=== PATIENT | male | born 1955 | race Caucasian/White ===

== ENCOUNTER 2023-09-19 16:28 | Emergency (ER) | payer MEDICARE, SELFPAY ==
[2023-09-19 16:49] VITALS: BP 130/72; PULSE 90; RESP 20; TEMP 36.8; O2SAT 98
--- NOTE | 2023-09-19 17:07 | ED.URI ---
HPI - URI/Sore Throat General Chief Complaint: Upper Respiratory Infection Stated Complaint: cough settled in chest Time Seen by Provider: 09/19/23 17:39 Source: patient and RN notes reviewed Mode of arrival: ambulatory Limitations: no limitations History of Present Illness HPI Narrative: 67-year-old male with history of asthma and CHF presents with concern for cough that feels like it settled in his chest. He reports symptoms started about 5 days ago. Reports he has used his albuterol inhaler and nebulizer and has been using Robitussin and Mucinex without relief. MD elicited complaint: cough Related Data Home Medications Medication Instructions Recorded Confirmed albuterol sulfate 90 mcg/actuation 2 puff inhalation Q4H PRN sob 09/19/23 09/19/23 aerosol inhaler cyclobenzaprine 10 mg tablet 10 mg PO BID PRN pain 09/19/23 09/19/23 digoxin 125 mcg (0.125 mg) tablet 125 mcg PO DAILY 09/19/23 09/19/23 fluticasone 250 mcg-salmeterol 50 inh inhalation BID 09/19/23 mcg/dose blistr powdr for inhalation (Advair Diskus) furosemide 20 mg tablet 20 mg PO DAILY 09/19/23 09/19/23 glimepiride 2 mg tablet 2 mg PO DAILY 09/19/23 09/19/23 hydrocodone 10 mg-acetaminophen 1 tablet PO Q6H PRN pain 09/19/23 09/19/23 325 mg tablet losartan 100 mg tablet 100 mg PO DAILY 09/19/23 09/19/23 metformin 1,000 mg tablet 1,000 mg PO BID 09/19/23 09/19/23 tamsulosin 0.4 mg capsule 0.4 mg PO DAILY 09/19/23 09/19/23 Allergies Allergy/AdvReac Type Severity Reaction Status Date / Time lisinopril Allergy Intermediate CHF Verified 09/19/23 16:59 Review of Systems Review of Systems: CONSTITUTIONAL: Denies malaise, chills, sweats, or fever. EYES: Denies visual changes, redness, or discharge. ENT: Reports rhinorrhea, congestion. Denies sinus pain, otalgia and sore throat. CARDIOVASCULAR: Denies chest pain, palpitations, or edema. RESPIRATORY: Reports cough, chest congestion, dyspnea. GASTROINTESTINAL: Denies abdominal pain, nausea, vomiting, diarrhea SKIN: Denies rash or itching. MUSCULOSKELETAL: Denies myalgia. NEUROLOGIC: Denies headache. All systems reviewed & are unremarkable except as noted in HPI and below PMFSH Comments At time of signature, agree with nursing past medical, surgical, social and family history. There is no relevant family history pertinent to the presenting complaint Exam Narrative: GENERAL: Well-appearing, well-nourished, and in no acute distress. HEAD: Normocephalic EYES: PERRLA, conjunctivae clear ENT: Nares clear. Mucous membranes moist. TM pearly james with sharp light reflex bilaterally; no tragal tenderness. Oropharynx not erythematous without lesions. Tonsils not enlarged and without exudate, no drooling, no hoarseness, no trismus, uvula midline. NECK: Supple. No lymphadenopathy CHEST: Scattered expiratory wheeze, breath sounds equal. No rhonchi, rales, or stridor. No respiratory distress, speaks in full sentences. HEART: Regular rate and rhythm. No murmur heard. SKIN: Warm, dry, no rash. NEURO: Alert and oriented x3. PSYCH: Normal mood and affect Course Course Emergency Course: Patient is aware of diagnosis, understands and agrees to treatment plan. Anticipatory guidance given. Patient agrees to follow-up as directed and is aware of reasons to seek care at the emergency department. Portions of this record may have been created with voice recognition software Level of Care: Express Care Visit Vital Signs Vital signs: Vital Signs Temperature 98.2 F 09/19/23 16:49 Pulse Rate 90 09/19/23 16:49 Respiratory Rate 20 09/19/23 16:49 Blood Pressure 130/72 09/19/23 16:49 Pulse Oximetry 98 09/19/23 16:49 Oxygen Delivery Room Air 09/19/23 16:49 Temperature 98.2 F 09/19/23 16:49 Pulse Rate 90 09/19/23 16:49 Respiratory Rate 20 09/19/23 16:49 Blood Pressure 130/72 09/19/23 16:49 Pulse Oximetry 98 09/19/23 16:49 Oxygen Delivery Room Air 09/19/23 16:49 Revie
== END 2023-09-19 17:45 | disposition home or self-care (01) ==
PROVIDERS: Emergency Provider Nurse Practitioner; PCP Internal Medicine
DX: J06.9 Acute upper respiratory infection, unspecified (principal); J45.909 Unspecified asthma, uncomplicated; I50.9 Heart failure, unspecified; E78.00 Pure hypercholesterolemia, unspecified; E11.9 Type 2 diabetes mellitus without complications; Z95.810 Presence of automatic (implantable) cardiac defibrillator
CPT/HCPCS: 99203; G0463

== ENCOUNTER 2023-10-29 17:35 | Emergency (ER) | payer MEDICARE, SELFPAY ==
--- NOTE | ~2023-10-29 | XR_ITS ---
EXAMINATION: XR chest 2V DATE: 10/29/2023 18:17 INDICATION: Shortness of breath. Cough. TECHNIQUE: Frontal and lateral views of the chest were obtained. COMPARISON: None. FINDINGS: There is no pneumonia, pleural effusion, or pneumothorax. The heart size is normal. There i s a left chest pacer/defibrillator with lead in right ventricle. IMPRESSION: 1. No acute cardiopulmonary disease. Reviewed, dictated and finalized at location E. [employer]
[2023-10-29 17:43] VITALS: BP 85/52; PULSE 100; RESP 20; TEMP 36.6; O2SAT 99
[2023-10-29 17:58] VITALS: BP 88/59
--- NOTE | 2023-10-29 18:45 | ED.URI ---
HPI - URI/Sore Throat General Chief Complaint: Upper Respiratory Infection Stated Complaint: Cough Time Seen by Provider: 10/29/23 18:30 Source: patient, RN notes reviewed and old records reviewed Mode of arrival: ambulatory Limitations: no limitations History of Present Illness HPI Narrative: 67-year-old male presents to [facility] with complaints of having cough for the past 2 weeks which has persisted. Patient reports that he initially had some fevers but they have resolved. Patient reports that he has been taking Mucinex and has also been using his inhaler and nebulizer. Patient has history of asthma MD elicited complaint: cough Pertinent past history: asthma Onset (ago): week(s) (2) Consistency: constant Severity: moderate Able to tolerate fluids by mouth: Yes Treatments prior to arrival: other (Mucinex and inhaler) Related Data Home Medications Medication Instructions Recorded Confirmed albuterol sulfate 90 mcg/actuation 2 puff inhalation Q4H PRN sob 09/19/23 10/29/23 aerosol inhaler cyclobenzaprine 10 mg tablet 10 mg PO BID PRN pain 09/19/23 10/29/23 digoxin 125 mcg (0.125 mg) tablet 125 mcg PO DAILY 09/19/23 10/29/23 fluticasone 250 mcg-salmeterol 50 2 inh inhalation BID 09/19/23 10/29/23 mcg/dose blistr powdr for inhalation (Advair Diskus) furosemide 20 mg tablet 20 mg PO DAILY 09/19/23 10/29/23 glimepiride 2 mg tablet 2 mg PO DAILY 09/19/23 10/29/23 hydrocodone 10 mg-acetaminophen 1 tablet PO Q6H PRN pain 09/19/23 10/29/23 325 mg tablet losartan 100 mg tablet 100 mg PO DAILY 09/19/23 10/29/23 metformin 1,000 mg tablet 1,000 mg PO BID 09/19/23 10/29/23 tamsulosin 0.4 mg capsule 0.4 mg PO DAILY 09/19/23 10/29/23 carvedilol 6.25 mg tablet 19.25 mg PO BID 10/29/23 10/29/23 spironolactone 25 mg tablet 12.5 mg PO DAILY 10/29/23 10/29/23 Allergies Allergy/AdvReac Type Severity Reaction Status Date / Time lisinopril Allergy Intermediate CHF Verified 10/29/23 18:51 Review of Systems Review of Systems: CONSTITUTIONAL: Denies malaise, chills, sweats, or recent fever. EYES: Denies visual changes, redness, or discharge. ENT: Reports rhinorrhea, congestion, no sinus pain, no otalgia and no sore throat. CARDIOVASCULAR: Denies chest pain, palpitations, or edema. RESPIRATORY: Reports cough.? Denies acute dyspnea. GASTROINTESTINAL: Denies abdominal pain, nausea, vomiting, diarrhea SKIN: Denies rash or itching. MUSCULOSKELETAL: Denies myalgia. NEUROLOGIC: Denies headache. All systems reviewed & are unremarkable except as noted in HPI and below PMFSH Past Medical History Medical History (Updated 10/31/23 @ 22:08 by Alessandra Amezquita NP) Asthma CHF (congestive heart failure), NYHA class II Diabetes Elevated cholesterol Fracture of left upper limb GERD (gastroesophageal reflux disease) Hypertension Presence of combination internal cardiac defibrillator (ICD) and pacemaker Surgical History Surgical History (Updated 10/31/23 @ 22:04 by Alessandra Amezquita NP) History of bilateral carpal tunnel release Hx of appendectomy Social History Social History (Updated 10/31/23 @ 22:02 by Alessandra Amezquita NP) Years smoked: 15 Smoking status: Former smoker Additional smoking assessment comments: Quit 2002 Alcohol intake: current Alcohol use details: rare Substance use type: does not use Living arrangements: with family Gender identity (if verbalized by the patient): Male Comments At time of signature, agree with nursing past medical, surgical, social and family history. There is no relevant family history pertinent to the presenting complaint Exam Narrative: GENERAL: Well-appearing, well-nourished, and in no acute distress. HEAD: Normocephalic EYES: PERRLA, conjunctivae clear ENT: Nares clear, turbinates edematous and erythematous, clear discharge. Mucous membranes moist. TM pearly james with dull light reflex bilaterally; no tragal tenderness. Oropharynx erythema
[2023-10-29 19:05] VITALS: BP 99/66
== END 2023-10-29 19:05 | disposition home or self-care (01) ==
PROVIDERS: Emergency Provider Registered Nurse; PCP Internal Medicine
DX: J40 Bronchitis, not specified as acute or chronic (principal); Z20.822 Contact with and (suspected) exposure to COVID-19; I11.0 Hypertensive heart disease with heart failure; I50.9 Heart failure, unspecified; Z87.891 Personal history of nicotine dependence; J45.909 Unspecified asthma, uncomplicated; E11.9 Type 2 diabetes mellitus without complications; E78.00 Pure hypercholesterolemia, unspecified; K21.9 Gastro-esophageal reflux disease without esophagitis
CPT/HCPCS: 71046; 87426; 87804; 99213; G0463

== ENCOUNTER 2024-01-01 14:50 | Emergency (ER) | payer MEDICARE, SELFPAY ==
--- NOTE | ~2024-01-01 | XR_ITS ---
EXAMINATION: XR chest 2V 01/01/2024 15:22 INDICATION: Cough and shortness of breath PROCEDURE: 2 view chest COMPARISON: 10/29/2023 FINDINGS: The lungs are clear. The cardiomediastinal silhouette is within normal limits. There are no pleural effusions. There is no pneumothorax suspected. There are prominent bilateral nipple shad ows. Pacemaker lead in the right ventricle. IMPRESSION: 1: NO ACUTE CARDIOPULMONARY DISEASE. Reviewed, dictated and finalized at location A.
[2024-01-01 14:56] VITALS: BP 112/59; PULSE 61; RESP 20; TEMP 36.7; O2SAT 96
--- NOTE | 2024-01-01 15:13 | ED.GENADULT ---
HPI - General Adult General Chief complaint: Upper Respiratory Infection Stated complaint: cough / congestion in chest Source: patient, RN notes reviewed and old records reviewed Mode of arrival: ambulatory Limitations: no limitations History of Present Illness HPI narrative: 68-year-old male patient presents to [facility] with complaints clear productive cough, wheezing, shortness of breath this started approximately 5 days ago. Patient states worsened 3 days ago when shortness of breath and pain with coughing began. Patient states using inhaler and nebulizer with no relief. Related Data Home Medications Medication Instructions Recorded Confirmed albuterol sulfate 90 mcg/actuation 2 puff inhalation Q4H PRN sob 09/19/23 01/01/24 aerosol inhaler cyclobenzaprine 10 mg tablet 10 mg PO BID PRN pain 09/19/23 01/01/24 digoxin 125 mcg (0.125 mg) tablet 125 mcg PO DAILY 09/19/23 01/01/24 fluticasone 250 mcg-salmeterol 50 2 inh inhalation BID 09/19/23 01/01/24 mcg/dose blistr powdr for inhalation (Advair Diskus) furosemide 20 mg tablet 20 mg PO DAILY 09/19/23 01/01/24 glimepiride 2 mg tablet 2 mg PO DAILY 09/19/23 01/01/24 hydrocodone 10 mg-acetaminophen 1 tablet PO Q6H PRN pain 09/19/23 01/01/24 325 mg tablet losartan 100 mg tablet 100 mg PO DAILY 09/19/23 01/01/24 metformin 1,000 mg tablet 1,000 mg PO BID 09/19/23 01/01/24 tamsulosin 0.4 mg capsule 0.4 mg PO DAILY 09/19/23 01/01/24 carvedilol 6.25 mg tablet 19.25 mg PO BID 10/29/23 01/01/24 spironolactone 25 mg tablet 12.5 mg PO DAILY 10/29/23 01/01/24 Allergies Allergy/AdvReac Type Severity Reaction Status Date / Time lisinopril Allergy Intermediate CHF Verified 01/01/24 15:03 Review of Systems Constitutional: Constitutional: Reports no additional constitutional complaints, Denies body ache(s), Denies chills, Denies fatigue, Denies fever(s) and Denies headache(s) Eyes: Eyes: Reports no additional eye complaints and Denies blurry vision ENT: Reports system reviewed and no additional complaints, except as documented, Denies vertigo, Denies dizziness, Denies ear discharge, Denies otalgia, Denies facial pain, Denies headache(s), Denies nasal congestion, Denies nasal discharge, Denies sinus pain, Denies sinus pressure and Denies sore throat Cardiovascular: Cardiovascular: Reports no additional cardiovascular complaints, Denies chest pain, Denies chest pain at rest, Denies rapid heart rate and Reports dyspnea Respiratory: Respiratory: Reports no additional respiratory complaints, Reports chest congestion, Denies cough, Reports pain on inspiration, Reports pain with cough, Reports dyspnea and Reports wheezing Gastrointestinal: Gastrointestinal: Denies abdominal pain, Denies diarrhea, Denies nausea and Denies vomiting Integumentary/Breasts: Skin/Breast: Denies rash Neurologic: Reports system reviewed and no additional complaints, except as documented, Denies vertigo, Denies dizziness and Denies headache(s) Endocrine: Endocrine: Denies fatigue PMFSH Past Medical History Medical History Asthma CHF (congestive heart failure), NYHA class II Diabetes Elevated cholesterol Fracture of left upper limb GERD (gastroesophageal reflux disease) Hypertension Presence of combination internal cardiac defibrillator (ICD) and pacemaker Surgical History Surgical History History of bilateral carpal tunnel release Hx of appendectomy Social History Social History Years smoked: 15 Smoking status: Former smoker Additional smoking assessment comments: Quit 2002 Alcohol intake: current Alcohol use details: rare Substance use type: does not use Living arrangements: with family Gender identity (if verbalized by the patient): Male Comments At the time of my signature, I reviewed and agree with the nurs
== END 2024-01-01 15:30 | disposition home or self-care (01) ==
PROVIDERS: Emergency Provider Registered Nurse; PCP Internal Medicine
DX: J45.20 Mild intermittent asthma, uncomplicated (principal); Z87.891 Personal history of nicotine dependence; I11.0 Hypertensive heart disease with heart failure; I50.9 Heart failure, unspecified; E11.9 Type 2 diabetes mellitus without complications; Z79.84 Long term (current) use of oral hypoglycemic drugs; E78.00 Pure hypercholesterolemia, unspecified; K21.9 Gastro-esophageal reflux disease without esophagitis; Z95.810 Presence of automatic (implantable) cardiac defibrillator
CPT/HCPCS: 71046; 99213; G0463

== ENCOUNTER 2024-01-07 10:12 | Emergency (ER) | payer MEDICARE, SELFPAY ==
[2024-01-07 10:18] VITALS: BP 111/78; PULSE 118; RESP 16; TEMP 37.2; O2SAT 99
--- NOTE | 2024-01-07 10:29 | ED.URI ---
HPI - URI/Sore Throat General Chief Complaint: Upper Respiratory Infection Stated Complaint: Cough Time Seen by Provider: 01/07/24 10:31 Source: patient and RN notes reviewed Mode of arrival: ambulatory Limitations: no limitations History of Present Illness HPI Narrative: 68-year-old male with history of asthma presents with concern for ongoing cough. He was treated on December 31 for cough, wheezing, shortness of breath that he had had for 5 days at that time. He reports he took a steroid but he still coughing. He reports some improvement in the cough but no resolution. Reports he still using his albuterol inhaler or nebulizer 5-6 times daily. He denies any new fever, body aches, chills, sweats. Reports his cough is productive MD elicited complaint: cough Related Data Home Medications Medication Instructions Recorded Confirmed albuterol sulfate 90 mcg/actuation 2 puff inhalation Q4H PRN 09/19/23 01/07/24 aerosol inhaler Shortness Of Breath Or Wheezing cyclobenzaprine 10 mg tablet 10 mg PO BID PRN pain 09/19/23 01/07/24 digoxin 125 mcg (0.125 mg) tablet 125 mcg PO DAILY 09/19/23 01/07/24 fluticasone 250 mcg-salmeterol 50 2 inh inhalation BID 09/19/23 01/07/24 mcg/dose blistr powdr for inhalation (Advair Diskus) furosemide 20 mg tablet 20 mg PO DAILY 09/19/23 01/07/24 glimepiride 2 mg tablet 2 mg PO DAILY 09/19/23 01/07/24 hydrocodone 10 mg-acetaminophen 1 tablet PO Q6H PRN pain 09/19/23 01/07/24 325 mg tablet losartan 100 mg tablet 100 mg PO DAILY 09/19/23 01/07/24 metformin 1,000 mg tablet 1,000 mg PO BID 09/19/23 01/07/24 tamsulosin 0.4 mg capsule 0.4 mg PO DAILY 09/19/23 01/07/24 carvedilol 6.25 mg tablet 19.25 mg PO BID 10/29/23 01/07/24 spironolactone 25 mg tablet 12.5 mg PO BID 10/29/23 01/07/24 atorvastatin 20 mg tablet 20 mg PO QHS 01/07/24 01/07/24 Allergies Allergy/AdvReac Type Severity Reaction Status Date / Time lisinopril Allergy Unknown Unknown Verified 01/07/24 10:28 Review of Systems Review of Systems: CONSTITUTIONAL: Denies malaise, chills, sweats, or fever. EYES: Denies visual changes, redness, or discharge. ENT: Denies rhinorrhea, congestion, sinus pain, otalgia and sore throat. CARDIOVASCULAR: Denies chest pain, palpitations, or edema. RESPIRATORY: Reports productive cough, dyspnea. GASTROINTESTINAL: Denies abdominal pain, nausea, vomiting, diarrhea SKIN: Denies rash or itching. MUSCULOSKELETAL: Denies myalgia. NEUROLOGIC: Denies headache. All systems reviewed & are unremarkable except as noted in HPI and below PMFSH Past Medical History Medical History Asthma CHF (congestive heart failure), NYHA class II Diabetes Elevated cholesterol Fracture of left upper limb GERD (gastroesophageal reflux disease) Hypertension Presence of combination internal cardiac defibrillator (ICD) and pacemaker Surgical History Surgical History History of bilateral carpal tunnel release Hx of appendectomy Social History Social History Years smoked: 15 Smoking status: Former smoker Additional smoking assessment comments: Quit 2002 Alcohol intake: current Alcohol use details: rare Substance use type: does not use Living arrangements: with family Gender identity (if verbalized by the patient): Male Comments At time of signature, agree with nursing past medical, surgical, social and family history. There is no relevant family history pertinent to the presenting complaint Exam Narrative: GENERAL: Well-appearing, well-nourished, and in no acute distress. HEAD: Normocephalic EYES: PERRLA, conjunctivae clear ENT: Nares clear. Mucous membranes moist. TM pearly james with sharp light reflex bilaterally; no tragal tenderness. Oropharynx not erythematous without lesions. Tonsils not enlarged and without exudate, no drooling
[2024-01-07 10:35] VITALS: BP 111/78; PULSE 118; RESP 16; TEMP 37.2; O2SAT 99
== END 2024-01-07 10:45 | disposition home or self-care (01) ==
PROVIDERS: Emergency Provider Nurse Practitioner; PCP Internal Medicine
DX: J22 Unspecified acute lower respiratory infection (principal); Z87.891 Personal history of nicotine dependence; J45.909 Unspecified asthma, uncomplicated; E11.9 Type 2 diabetes mellitus without complications; Z79.84 Long term (current) use of oral hypoglycemic drugs; E78.00 Pure hypercholesterolemia, unspecified; K21.9 Gastro-esophageal reflux disease without esophagitis; I11.0 Hypertensive heart disease with heart failure; I50.9 Heart failure, unspecified; Z95.810 Presence of automatic (implantable) cardiac defibrillator
CPT/HCPCS: 99213; G0463

== ENCOUNTER 2024-04-20 13:31 | Emergency (ER) | payer MEDICARE, SELFPAY ==
[2024-04-20 13:36] VITALS: BP 107/60; PULSE 49; RESP 18; TEMP 37; O2SAT 97
--- NOTE | 2024-04-20 13:54 | ED.URI ---
HPI - URI/Sore Throat General Chief Complaint: Upper Respiratory Infection Stated Complaint: chest congestion/weak Time Seen by Provider: 04/20/24 13:45 Source: patient, RN notes reviewed and old records reviewed Mode of arrival: ambulatory Limitations: no limitations History of Present Illness HPI Narrative: 68 year old male with complaints of head and chest congestion for the past 4-5 days with no energy. Patient reports that cough is bothersome and has been taking Mucinex with expectorant and with suppressant and has been using his inhaler as prescribed has history of asthma, CHF and has internal pacer and defibrillator. Patient reports no acute dyspnea is able to talk in full sentences,no tachypnea SAO2 97% on room air., reports no fevers. MD elicited complaint: cough and sore throat Pertinent past history: asthma and other (CHF) Onset (ago): day(s) (4-5) Consistency: progressively worsening Pain scale (0-10): 8 Description of mucous: clear and yellow Able to tolerate fluids by mouth: Yes Treatments prior to arrival: other (inhalers, Mucinex with expectorant and Mucinex with suppressant) Related Data Home Medications Medication Instructions Recorded Confirmed albuterol sulfate 90 mcg/actuation 2 puff inhalation Q4H PRN 09/19/23 01/07/24 aerosol inhaler Shortness Of Breath Or Wheezing cyclobenzaprine 10 mg tablet 10 mg PO BID PRN pain 09/19/23 01/07/24 digoxin 125 mcg (0.125 mg) tablet 125 mcg PO DAILY 09/19/23 01/07/24 furosemide 20 mg tablet 20 mg PO DAILY 09/19/23 01/07/24 glimepiride 2 mg tablet 2 mg PO DAILY 09/19/23 01/07/24 hydrocodone 10 mg-acetaminophen 1 tablet PO Q6H PRN pain 09/19/23 01/07/24 325 mg tablet metformin 1,000 mg tablet 1,000 mg PO BID 09/19/23 01/07/24 tamsulosin 0.4 mg capsule 0.4 mg PO DAILY 09/19/23 01/07/24 carvedilol 6.25 mg tablet 19.25 mg PO BID 10/29/23 01/07/24 spironolactone 25 mg tablet 12.5 mg PO BID 10/29/23 01/07/24 atorvastatin 20 mg tablet 20 mg PO QHS 01/07/24 01/07/24 empagliflozin 25 mg tablet mg 04/20/24 (Jardiance) fluticasone furoate 200 inhalation 04/20/24 mcg-vilanterol 25 mcg/dose inhalation powder (Breo Ellipta) sacubitril 97 mg-valsartan 103 mg tablet 04/20/24 tablet (Entresto) sildenafil 100 mg tablet mg 04/20/24 Allergies Allergy/AdvReac Type Severity Reaction Status Date / Time lisinopril Allergy Unknown Unknown Verified 04/20/24 13:36 Review of Systems Review of Systems: CONSTITUTIONAL: Reports malaise, no chills, sweats, or fever. EYES: Denies visual changes, redness, or discharge. ENT: Reports rhinorrhea, congestion,no sinus pain,no otalgia and no sore throat. CARDIOVASCULAR: Denies chest pain, palpitations, or edema. RESPIRATORY: Reports cough.? Denies acute dyspnea. GASTROINTESTINAL: Denies abdominal pain, nausea, vomiting, diarrhea SKIN: Denies rash or itching. MUSCULOSKELETAL: Reports myalgia. NEUROLOGIC: Denies headache. All systems reviewed & are unremarkable except as noted in HPI and below PMFSH Past Medical History Medical History Asthma CHF (congestive heart failure), NYHA class II Diabetes Elevated cholesterol Fracture of left upper limb GERD (gastroesophageal reflux disease) Hypertension Presence of combination internal cardiac defibrillator (ICD) and pacemaker Surgical History Surgical History History of bilateral carpal tunnel release Hx of appendectomy Social History Social History Years smoked: 15 Smoking status: Former smoker Additional smoking assessment comments: Quit 2002 Alcohol intake: current Alcohol use details: rare Substance use type: does not use Living arrangements: with family Gender identity (if verbalized by the patient): Male Comments At time of signature, agree with nursing past medical, surgical
== END 2024-04-20 14:22 | disposition home or self-care (01) ==
PROVIDERS: Emergency Provider Registered Nurse; PCP Internal Medicine
DX: R05.1 Acute cough (principal); J32.9 Chronic sinusitis, unspecified; Z87.891 Personal history of nicotine dependence; J45.909 Unspecified asthma, uncomplicated; E11.9 Type 2 diabetes mellitus without complications; E78.00 Pure hypercholesterolemia, unspecified; I11.0 Hypertensive heart disease with heart failure; I50.9 Heart failure, unspecified; K21.9 Gastro-esophageal reflux disease without esophagitis; Z95.810 Presence of automatic (implantable) cardiac defibrillator
CPT/HCPCS: 99213; G0463